=== PATIENT | male | born 2005 | race Caucasian/White ===

== ENCOUNTER 2024-05-18 05:03 | Emergency (ER) | payer SELFPAY ==
[2024-05-18 05:04] VITALS: BP 129/85; PULSE 98; RESP 16; TEMP 36.4; O2SAT 97; BMI 24.3
--- NOTE | 2024-05-18 05:17 | EX.ED.SAOD ---
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 Evaluated around 5 AM Monday morning. Patient states he was drinking not beer but does not know what it was because it was what ever they gave me at my friend's house. He states he does not remember vomiting, but states that is why the college sent him here to be evaluated. He states his last drink was about 5 hours ago. He denies any dyspnea or nausea. He denies any falls or injuries. PFSH PFSH Medical History no medical history no medical history Allergy/AdvReac Type Severity Reaction Status Date / Time Penicillins Allergy Rash Verified 05/18/24 05:05 Surgical History no surgical history Social History Smoking Status: Never smoker ROS ROS ED Constitutional Constitutional ED: Denies chills or fever(s) Eyes Eyes: Denies change in vision or diplopia ENT ENT ED: Denies rhinorrhea or sore throat Cardiovascular Cardiovascular: Denies chest pain or palpitations Respiratory/Chest Respiratory/Chest: Denies cough or dyspnea Gastrointestinal Gastrointestinal: Reports vomiting; Denies abdominal pain, diarrhea or nausea Genitourinary Genitourinary ED: Denies dysuria or hematuria Musculoskeletal Musculoskeletal: Denies back pain or neck pain Integumentary Denies abscess or rash Neurologic Neurologic: Denies headache(s), paresthesias or weakness Psychiatric Psychiatric: Denies anxiety or suicidal thoughts EXAM Physical Exam Const Vital Signs: 05/18/24 05:04 Temperature 97.5 F L Temperature Source Oral Pulse Rate 98 Respiratory Rate 16 Blood Pressure 129/85 H Blood Pressure Mean 99 Pulse Ox 97 Positive well nourished and well developed General Appearance ED: well developed and NAD HEENT Reports moist mucous membranes normocephalic and atraumatic Eyes PERRL and EOMs intact bilaterally Neck full ROM and supple Resp normal respiratory effort and clear to auscultation bilaterally Cardio regular rate, regular rhythm and no murmurs GI non-tender and non-distended Auscultation: normoactive bowel sounds Palpation: soft Back/Spine no CVA tenderness General Back: other FROM Extremity normal to inspection General Extremety ED: Negative for edema, pulses abnormal or tenderness General Extremity: Negative for edema or pulses abnormal Neuro oriented x3, CN's II-XII intact bilaterally and no sensory deficits noted Sensorium / Orientation: awake and alert Motor Exam: strength 5/5 throughout Skin no rashes or lesions noted and no wounds MDM MDM MDM Narrative Medical decision making narrative: Patient is keenly alert he has normal vital signs, he drank a cup of water and denies any nausea or abdominal discomfort and states he wants to go back to his dorm so he can get some sleep before band practice in the morning. I think this is reasonable and advised him to drink plenty of water. I offered him a Zofran and he declined it. Discharge Plan Triage Chief Complaint: ETOH Intox ED Provider: Carrington Patricia Dx/Rx/DC Orders Clinical Impression: Alcohol intoxication Instructions: ED Alcohol Intoxication Primary Care Provider: NOT,DEFINED Referrals: NOT,DEFINED [Primary Care Provider] - Print Language: Luxembourgish Disposition Disposition: Home, Self Care
== END 2024-05-18 05:26 | disposition home or self-care (01) ==
LOC: ED 05:22
PROVIDERS: Emergency Provider Emergency Medicine; Visit Provider Emergency Medicine
DX: F10.129 Alcohol abuse with intoxication, unspecified (principal)
CPT/HCPCS: 99282